=== PATIENT | female | born 1950 | race Caucasian/White ===

== ENCOUNTER 2023-03-24 21:02 | Emergency (ER) | payer MEDICARE, OTHER, SELFPAY ==
--- NOTE | ~2023-03-24 | XR_ITS ---
EXAM: XR knee RT 3V DATE: 03/24/2023 21:47 HISTORY: fall, injury, pain . COMPARISON: None available. FINDINGS: Decreased mineralization. No fracture or dislocation. No lytic or blastic lesion. Moderate right knee osteoarthritis. No erosion or periosteal change. Vascular calcifications. IMPRESSION: No acute osseous finding in the right knee. Reviewed, dictated and finalized at location K.
--- NOTE | ~2023-03-24 | XR_ITS ---
EXAM: XR humerus RT DATE: 03/24/2023 21:46 HISTORY: fall, injury, pain, LIMITED ROM . COMPARISON: None available. FINDINGS: Decreased mineralization. No fracture or dislocation. No lytic or blastic lesion. Degenera tive changes at the shoulder. No erosion or periosteal change. Soft tissues within normal limits. IMPRESSION: No acute osseous finding in the right humerus. Reviewed, dictated and finalized at location K.
[2023-03-24 21:16] VITALS: BP 103/59; PULSE 108; RESP 17; TEMP 36.6; O2SAT 97
--- NOTE | 2023-03-24 22:28 | ED.FALL ---
HPI - Fall General Chief Complaint: Fall Stated Complaint: fall with right arm pain Time Seen by Provider: 03/24/23 22:04 History of Present Illness HPI Narrative: 72-year-old female presented to the emergency department for evaluation of right arm pain after having a ground-level fall. Patient denies striking head denies loss of consciousness. Patient complains of right upper arm pain and right knee pain. Related Data Allergies Allergy/AdvReac Type Severity Reaction Status Date / Time No Known Allergies Allergy Verified 03/24/23 21:18 Review of Systems Review of Systems: All systems reviewed & are unremarkable except as noted in HPI and below Exam Narrative: APPEARANCE: Well appearing, no pain, no distress, well-nourished. HEAD: normocephalic, atraumatic. EYES: PERRLA/EOMI, conjunctivae clear. NOSE: Normal no drainage EARS:TMS clear with good light reflex. THROAT: Pharynx clear, no exudate. NECK: Supple. No adenopathy, no masses. RESPIRATORY: Airway patent, respirations nonlabored. Clear to auscultation bilaterally, no rales, rhonchi, wheezing. CARDIOVASCULAR: Regular rate and rhythm without murmurs rubs or gallops. ABDOMINAL: Soft, nontender, nondistended, normal bowel sounds MUSCULOSKELETAL: Moves all extremities. Strength/ROM intact, No edema, No calf tenderness. No tenderness to palpation of shoulder some tenderness to palpation of upper arm. Pulses intact NEURO: Alert. Cranial nerves II through XII intact. Good gait. Good coordination SKIN: Warm, dry. Normal Color PSYCHIATRIC: Normal affect/mood. Course Course Emergency Course: 72-year-old female presented the ED for evaluation of right humerus pain and right knee pain. X-rays were negative for fracture or dislocation. Patient was provided a sling for comfort. Vital Signs Vital signs: Vital Signs Temperature 97.8 F 03/24/23 21:16 Pulse Rate 108 H 03/24/23 21:16 Respiratory Rate 17 03/24/23 21:16 Blood Pressure 103/59 L 03/24/23 21:16 Pulse Oximetry 97 03/24/23 21:16 Oxygen Delivery Room Air 03/24/23 21:16 Temperature 97.8 F 03/24/23 21:16 Pulse Rate 108 H 03/24/23 21:16 Respiratory Rate 17 03/24/23 21:16 Blood Pressure 103/59 L 03/24/23 21:16 Pulse Oximetry 97 03/24/23 21:16 Oxygen Delivery Room Air 03/24/23 21:16 MDM - Fall Imaging Data Radiologist's impression: Impressions Humerus X-Ray 03/24/23 21:48 IMPRESSION: No acute osseous finding in the right humerus. Knee X-Ray 03/24/23 21:49 IMPRESSION: No acute osseous finding in the right knee. Discharge Plan Discharge Clinical Impression: Arm pain Patient Disposition: Home, Self-Care Condition: Stable Instructions: Antibiotic Form, How to Use a Sling (ED) Additional Instructions: Tylenol and ibuprofen for pain control. Flexeril for muscle spasm. Replace the Tylenol with [place] for additional pain control. Have close follow-up with your primary care physician. Pouch sling for comfort. Prescriptions: New cyclobenzaprine 10 mg tablet 10 mg PO BID PRN (Reason: muscle spasm) Qty: 14 0RF hydrocodone-acetaminophen 5-325 mg tablet 1 tablet PO Q12H PRN (Reason: pain) Qty: 10 0RF Follow-up/Referrals: PHYSICIAN NOT ON STAFF,NONSTAFF [Primary Care Provider] -
[2023-03-24] MEDS: HYDROcodone/acetaminophen (*CRX) 5-325 MG TABLET 1 TAB PO (22:51)
[2023-03-24] MEDS: IBUPROFEN 400 MG TABLET 800 MG PO (22:51)
[2023-03-24] MEDS: CYCLOBENZAPRINE HCL 10 MG TABLET PO (22:51)
== END 2023-03-24 22:57 | disposition home or self-care (01) ==
PROVIDERS: Emergency Provider Emergency Medicine
DX: S49.91XA Unspecified injury of right shoulder and upper arm, initial encounter (principal); S89.91XA Unspecified injury of right lower leg, initial encounter; W18.30XA Fall on same level, unspecified, initial encounter
CPT/HCPCS: 73060; 73562; 99284; A4565; A9270